=== PATIENT | female | born 1960 | race Caucasian/White ===

== ENCOUNTER → 2016-07-04 | Outpatient (CLI) | payer BC | LOC: GMAJ 10:58 | PROVIDERS: ATTEND Family Medicine | DX: E78.00 Pure hypercholesterolemia, unspecified (principal) ==

== ENCOUNTER → 2016-09-19 | Outpatient (CLI) | payer BC ==
--- NOTE | 2016-09-19 17:33 | MAM ---
History: Well woman exam. Personal history of breast cancer. Date of exam: 09/19/2016. Services provided: Bilateral full field digital screening mammography. CAD, the images were reviewed with R2 computer aided detection. FINDINGS: Glandular tissue is scattered glandular contour with increased mammographic density. Comparison with 2014 study. Surgical clips are present bilaterally with postsurgical changes bilaterally. These appear grossly stable. Scattered calcifications are seen bilaterally. No dominant mass. IMPRESSION: Benign exam Recommendation: Routine annual mammography BIRAD CATEGORY: 2 BENIGN Electronically signed by: Marcy Min MD 09/19/2016 5:32 PM CDT
== END | disposition home or self-care (01) ==
LOC: MAMMO 14:27
PROVIDERS: ATTEND Family Medicine
DX: Z12.31 Encounter for screening mammogram for malignant neoplasm of breast (principal)

== ENCOUNTER → 2017-01-23 | Outpatient (CLI) | payer BC | END | disposition home or self-care (01) | LOC: GMAJ 10:39 | PROVIDERS: ATTEND Family Medicine | DX: Z00.00 Encounter for general adult medical examination without abnormal findings (principal) ==

== ENCOUNTER → 2017-08-29 | Outpatient (CLI) | payer BC ==
--- NOTE | 2017-08-30 10:15 | US ---
THYROID ULTRASOUND CLINICAL INFORMATION: Thyroid nodule TECHNIQUE: Thyroid sonography was performed COMPARISON: None FINDINGS: Thyroid size: Right lobe measures 3.8 x 1.4 x 1.6 cm. Left lobe measures 4.5 x 2 x 2.1 cm cm. Thyroid isthmus measures 4 mm in thickness. Texture: Mildly coarsened slightly inhomogeneous texture Estimated total number of nodules >/=1 cm: 2 Right lobe A lesion in the right lobe measures 1 x 0.6 x 0.8 cm. No internal microcalcifications to suggest the need for biopsy at this time. This could be followed up in one year. Left Large lesion is seen occupying the midportion of the left thyroid lobe which measures 2.5 x 1.7 x 1.8 cm. This is somewhat inhomogeneous but appears entirely solid. Minimal color flow within the nodule. Sono guided biopsy is recommended. IMPRESSION: Dominant nodule in the mid to lower left thyroid lobe measures 2.5 cm in greatest dimension. Further evaluation with sono guided fine-needle aspiration biopsy is recommended. Smaller right thyroid nodule 1 cm in greatest dimension can be followed as noted above. Electronically signed by: Galo Gutierrez MD 08/30/2017 10:13 AM CDT
== END ==
LOC: US 13:24
PROVIDERS: ATTEND Family Medicine
DX: E04.1 Nontoxic single thyroid nodule (principal)

== ENCOUNTER → 2017-09-06 | Outpatient (CLI) | payer BC ==
--- NOTE | 2017-09-07 09:22 | US ---
Thyroid Ultrasound Biopsy: Ultrasound guided. CLINICAL INFORMATION: Large left thyroid nodule seen on ultrasound 08/29/2017. TECHNIQUE: Procedure was explained to the patient with risks and benefits. The patient gave verbal and written consent. Sterile preparation draping. 1% xylocaine dermal anesthetic. Sterile ultrasound guidance. A total of 5 passes into hypoechoic, solid, 2.5 cm mid left thyroid nodule; 3 needle samplings with a separate 1.5 inch, 25-gauge needle per sample, and 2 aspiration, with a separate 1.5 inch, 25-gauge needle/10-cc syringe set, per aspiration. Each sample was placed on a separate slide and fixed in 95% alcohol container. Saccomanno fluid drawn into aspirate needle and rinse injected into Saccomanno container. Specimens to be sent for pathologic examination at remote facility. . Patient tolerated procedure well, with no immediate complications. Biopsy #: 1 Nodule reference number based on prior diagnostic ultrasound:other Maximum size: 2.5 cm Location: left; mid ACR TI-RADS risk category: TR4 (4-6 points) Reason for biopsy: meets ACR TI-RADS criteria Complications: None IMPRESSION: Successful ultrasound guided fine needle aspiration of 2.5 cm hypoechoic, almost solid, left thyroid nodule. Pathology results pending. Electronically signed by: Evert Monaco MD 09/07/2017 9:21 AM CDT
== END | disposition home or self-care (01) ==
LOC: US 08:55
PROVIDERS: ATTEND Family Medicine
PROC: 0GBG3ZX Excision of Left Thyroid Gland Lobe, Percutaneous Approach, Diagnostic (ICD-10-PCS; principal; 2017-09-06)
DX: E04.1 Nontoxic single thyroid nodule (principal)

== ENCOUNTER → 2018-03-27 | Outpatient (CLI) | payer BC | LOC: GMAJ 13:17 | PROVIDERS: ATTEND Family Medicine | DX: Z00.00 Encounter for general adult medical examination without abnormal findings (principal) ==

== ENCOUNTER → 2020-04-08 | Outpatient (CLI) | payer BC | LOC: GMAJ 14:22 | PROVIDERS: ATTEND Family Medicine | DX: I10 Essential (primary) hypertension (principal) ==

== ENCOUNTER → 2020-04-17 | Outpatient (CLI) | payer BC ==
--- NOTE | 2020-04-18 13:28 | CT ---
EXAM DESCRIPTION: CTA Neck CLINICAL HISTORY: 59 years Female, OCCLUSION AND STENOSIS OF UNSPEC CAROTID ART COMPARISON: None. TECHNIQUE: After bolus IV contrast administration, 1.[address] scanning through the neck was performed for CT cervical angiography. Coronal and sagittal reformatted images are obtained. 3-D shaded surface display images and 3-D MIP images of the cervical vessels are evaluated with spin display. FINDINGS: Axial source data images show clear lung apices. Large lung cyst on the left measures 7.1 cm. Enlarged left thyroid lobe is seen and could be further evaluated with sonography. Normal enhancement of the aortic arch. Normal enhancement of pulmonary arteries. Normal enhancement of the innominate artery, right common carotid and right subclavian arteries as well as the right vertebral artery. Positive enhancement of the left common carotid and left subclavian arteries with positive enhancement of the dominant left vertebral artery. Right vertebral artery is small in size. Right vertebral artery terminates in the right posterior inferior cerebellar artery. The left vertebral artery supplies the basilar artery and left posterior inferior cerebellar artery. Positive enhancement of the basilar artery with no aneurysm or occlusion. There is normal enhancement of the superior cerebellar arteries and bilateral posterior cerebral arteries. Small bilateral posterior communicating arteries are present contributing to the posterior cerebral arteries. Positive enhancement of widely patent bilateral cervical common carotid arteries which are tortuous. Right carotid bifurcation is widely patent with minimal arteriosclerotic plaque and no hemodynamically significant stenosis. Normal enhancement of the right supra bulbar ICA from the carotid bifurcation to the level of the [place]. Left carotid bifurcation is widely patent. Normal enhancement of the left internal and external carotid arteries. Widely patent left ICA from the level of the carotid bifurcation to the level of the [place]. Bilateral ICAs are widely patent. Normal enhancement of middle cerebral and anterior cerebral arteries bilaterally. Three-D shaded surface display images show mild calcified plaque at the carotid bulbs bilaterally with no significant stenosis. The right ECA was edited out. Both ICAs are widely patent. MIP images show widely patent carotid bulbs and ICAs. Tortuous widely patent cervical common carotid arteries. Coronal and sagittal reformatted images confirm widely patent carotid bifurcations bilaterally. Arteriosclerotic plaque is minimal at the level of the carotid bulbs. Markedly tortuous common carotid arteries. IMPRESSION: Mild calcified plaque at the bilateral carotid bifurcations with no hemodynamically significant stenosis. Positive enhancement of smaller right and dominant left cervical vertebral arteries with no stenosis. This exam was performed according to our departmental dose-optimization program, which includes automated exposure control, adjustment of the mA and/or kV according to patient size and/or use of iterative reconstruction technique. Electronically signed by: Galo Gutierrez MD 04/18/2020 1:26 PM [facility]
== END ==
LOC: CT 10:21
PROVIDERS: ATTEND Family Medicine
DX: I65.23 Occlusion and stenosis of bilateral carotid arteries (principal)

== ENCOUNTER → 2020-04-22 | Outpatient (CLI) | payer BC ==
--- NOTE | 2020-04-23 05:20 | CT ---
EXAM DESCRIPTION: Chest w/Contrast CLINICAL HISTORY: 59 years Female, solitary pulmonary nodule TECHNIQUE: This exam was performed according to our departmental dose-optimization program, which includes automated exposure control, adjustment of the mA and/or kV according to patient size and/or use of iterative reconstruction technique. COMPARISON: None at time of initial interpretation. FINDINGS: The thyroid gland is unremarkable. No axillary adenopathy. Surgical clips in both breasts. Normal caliber thoracic aorta. No pericardial effusion. No evidence of acute process in the visualized upper abdomen. Probable cholelithiasis. No mediastinal adenopathy. No pneumothorax. No pleural effusion. Left upper lobe bulla measuring 6.5 cm. No focal consolidation. Emphysematous change. No suspicious pulmonary nodule identified. No acute or suspicious osseous abnormality. Scattered degenerative changes present. IMPRESSION: 1. No evidence of acute process in the chest. No suspicious pulmonary nodule. 2. Emphysema with a left upper lobe bulla. Electronically signed by: Vladislav Hudson MD 04/23/2020 5:19 AM [facility]
== END ==
LOC: CT 08:39
PROVIDERS: ATTEND Family Medicine
DX: R91.1 Solitary pulmonary nodule (principal); J43.9 Emphysema, unspecified

== ENCOUNTER 2020-07-22 19:00 | Emergency (ER) | payer BC ==
[2020-07-22] MEDS ORDERED: SODIUM CHLORIDE 0.9% (FLUSH) 10 ML SYG IV PRN (19:17)
[2020-07-22] MEDS ORDERED: SODIUM CHLORIDE 0.9% 1000ML 1,000 ML IVS PRN (19:17)
[2020-07-22] MEDS ORDERED: ONDANSETRON INJ 4 MG/2 ML VIAL IV ONE (19:17)
--- NOTE | 2020-07-22 19:38 | ED.PDOC ---
History of Present Illness - General Chief Complaint: GI Problem Stated Complaint: fevers, nausea, vomiting Time Seen by Provider: 07/22/20 19:32 Source: patient, RN notes reviewed, Vital Signs reviewed Exam Limitations: no limitations - History of Present Illness Initial Comments: Patient is a 59-year-old white female who presents with complaints of nausea and vomiting starting today. Last night she went to [place] and ate at [employer]. She had the honey chicken. Her did not have any. He is not sick. Patient denies any diarrhea. Patient's had 4 episodes of vomiting since this afternoon. Patient denies any fever or chills. Patient denies any blurred vision, dizziness or chest pain. Patient complains of being thirsty but not able to hold anything down. The vomiting is worse when she tries to eat or drink. Nothing makes it better. The symptoms are severe. Timing/Duration: 4-6 hours Severity: severe Improving Factors: nothing Worsening Factors: eating Associated Symptoms: nausea/vomiting Allergies/Adverse Reactions: Allergies NO KNOWN ALLERGY Allergy (Verified 07/22/20 19:17) Home Medications: Ambulatory Orders Citalopram Hydrobromide [Celexa] 20 mg PO DAILY 01/08/14 Garlic [Garlic 705 mg] 1 cap PO DAILY 01/08/14 Lisinopril 10 mg PO DAILY 01/08/14 Niacin 100 mg PO DAILY 01/08/14 Thida-3 Fatty Acids [Thida 3] 1 cap PO DAILY 01/08/14 Potassium Chloride [Micro-K] 10 meq PO DAILY 01/08/14 Ascorbic Acid [Vitamin C] 1,000 mg PO DAILY 01/10/14 Calcium 500 mg PO DAILY 01/10/14 Cyanocobalamin [Vitamin B 12] 250 mcg PO DAILY 01/10/14 Multiple Vitamins W/ Minerals [Biotin Plus/Calcium/Vit D] 1 tab PO DAILY 01/10/14 Multiple Vitamins W/ Minerals [Multi For Her] 1 cap PO DAILY 01/10/14 Review of Systems - Review of Systems Constitutional: States: no symptoms reported, see HPI. Denies: chills, fever, malaise, weakness EENTM: States: no symptoms reported. Denies: eye pain, blurred vision, double vision Respiratory: States: no symptoms reported. Denies: cough, orthopnea, short of breath, stridor, wheezing Cardiology: States: no symptoms reported. Denies: chest pain, palpitations, syncope Gastrointestinal/Abdominal: States: see HPI, nausea, vomiting. Denies: abdominal pain, constipation, diarrhea Genitourinary: States: no symptoms reported. Denies: dysuria, frequency Musculoskeletal: States: no symptoms reported. Denies: back pain, joint pain, neck pain Skin: States: no symptoms reported, rash. Denies: change in color Neurological: States: no symptoms reported. Denies: headache, tingling, tremors, weakness Endocrine: States: no symptoms reported. Denies: increased hunger, increased thirst, increased urine Hematologic/Lymphatic: States: no symptoms reported. Denies: blood clots, easy bleeding All other Systems: Reviewed and Negative Past Medical History (General) - Patient Medical History Hx of COPD: - pt told she has a "hole" in her lung Hx Congestive Heart Failure: No Hx Hypertension: Yes Hx Thyroid Disease: Yes - cyst on thryroid Hx Diabetes: Yes - borderline - Vaccination History Hx Tetanus, Diphtheria Vaccination: No Hx Influenza Vaccination: No Hx Pneumococcal Vaccination: No - Social History Hx Tobacco Use: No Hx Alcohol Use: No Family Medical History - Family History Mother Hx Family;Other: Tyhroid cancer Physical Exam - Physical Exam General Appearance: Alert, Anxious, Obvious distress, Ill Appearing, Well Developed, Well Groomed, Well Nourished Eye Exam: bilateral normal Ears, Nose, Throat: hearing grossly normal, normal ENT inspection, normal pharynx - Except for dry mucous membranes. 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 07/22/20 23:01 Patient heart rate is come down from the 140s into the low 100s. Her fever has come down from 105.7 down to 103-1/2. Her blood pressures still with a systolic in the 120s. Patient does have an elevated white count and LFTs in the 400 range. Additionally she has an elevated total bilirubin of 5.3. I am concerned for an obstructive ascending cholangitis. I do not have ultrasound here or GI. I will transfer the patient to [facility] for further evaluation. I have discussed this with Dr. Srinivasan at [facility] [place], GI, and he agrees the patient needs transferred. I have gotten acceptance from the ER from Dr. Barragan. William Monteiro M.D. #[id number] Patient's is adamant that the ultrasound be done tonight. I have explained to him that I have no control over the emergency department at [facility]. Additionally he wants to take his by private vehicle but I have let him know that I think his best option is to let her be taken over there by ambulance in case there are any untoward consequences during her transport. They finally have agreed to an ambulance transport. - Results/Orders Results/Orders: EKG performed 22 July 2020 at 1957 hrs.: Sinus tachycardia at 110 bpm, left atrial enlargement, right bundle branch block, T wave abnormality with flipped T waves inferiorly concerning for ischemia, abnormal EKG. No comparison EKG available at this time. 07/22/20 19:17 IV Care:Saline Lock per Protoc QSHIFT Sodium Chloride 0.9% (Flush) [Saline Flush Syringe] 10 ml IV PRN PRN Sodium Chloride 0.9% 1000ML [Ns 1000 ml] 1,000 ml IVS .QD URINALYSIS Stat 07/22/20 19:30 EKG STAT 07/22/20 20:09 RESPIRATORY PANEL 2 Stat Laboratory Results - last 24 hr 07/22/20 07/22/20 07/22/20 19:29 19:29 19:29 WBC 11.7 H RBC 4.80 Hgb 14.5 Hct 42.2 MCV 88.0 MCH 30.1 MCHC 34.2 RDW 12.9 Plt Count 285 MPV 8.9 Absolute Neuts (auto) 11.10 H Absolute Lymphs (auto) 0.40 L Absolute Monos (auto) 0.10 L Absolute Eos (auto) 0.00 Absolute Basos (auto) 0.00 Neutrophils % 95.0 H Lymphocytes % 3.5 L Monocytes % 1.3 L Eosinophils % 0.0 L Basophils % 0.2 Sodium 138 Potassium 3.1 L Chloride 102 Carbon Dioxide 22 Anion Gap 17.1 BUN 14 Creatinine 0.72 BUN/Creatinine Ratio 19.4 Random Glucose 205 H Serum Osmolality 282.1 Calcium 8.9 Total Bilirubin 5.3 H* AST 446 H ALT 301 H Alkaline Phosphatase 108 Serum Total Protein 7.8 Albumin 4.3 Globulin 3.5 Albumin/Globulin Ratio 1.2 Amylase 28 Lipase 25 Vital Signs 07/22/20 19:07 Temperature 105.7 F H Pulse Rate [ 132 H monitor] Respiratory 18 Rate Blood Pressure 175/90 [Left Arm] O2 Sat by Pulse 88 L Oximetry Heart rate at 2210 hrs. is 104 bpm. Covid is negative. Influenza is negative. Departure - Departure Clinical Impression: Ascending cholangitis, Elevated LFTs, Dehydration Fever Qualifiers: Fever type: unspecified Qualified Code(s): R50.9 - Fever, unspecified Time of Disposition: 23:15 Disposition: Transfer to Hospital Condition: Fair Departure Forms: ED Discharge - Pt. Copy, Patient Portal Self Enrollment Diet: other - npo Referrals: Zelalem Kuhn MD [Primary Care Provider] - 1-2 Weeks Home Medications: Ambulatory Orders Citalopram Hydrobromide [Celexa] 20 mg PO DAILY 01/08/14 Garlic [Garlic 705 mg] 1 cap PO DAILY 01/08/14 Lisinopril 10 mg PO DAILY 01/08/14 Niacin 100 mg PO DAILY 01/08/14 Thida-3 Fatty Acids [Thida 3] 1 cap PO DAILY 01/08/14 Potassium Chloride [Micro-K] 10 meq PO DAILY 01/08/14 Ascorbic Acid [Vitamin C] 1,000 mg PO DAILY 01/10/14 Calcium 500 mg PO DAILY 01/10/14 Cyanocobalamin [Vitamin B 12] 250 mcg PO DAILY 01/10/14 Multiple Vitamins W/ Minerals [Biotin Plus/Calcium/Vit D] 1 tab PO DAILY 01/10/14 Multiple Vitamins W/ Minerals [Multi For Her] 1 cap PO DAILY 01/10/14 Transfer to Outside Facility - Transfer Information Decision to Transfer Date: 07/22/20 Decision to Transfer Time: 22:30 Accepting Provider:: Dr. Bolton and Dr. Srinivasan Accepting Facility: [facility]
[2020-07-22] MEDS ORDERED: SODIUM CHLORIDE 0.9% 1000ML 1,000 ML IVS ONE (20:32)
[2020-07-22 22:15] VITALS: O2SAT 96
[2020-07-22] MEDS ORDERED: IBUPROFEN 200 MG TAB PO ONE (22:15)
[2020-07-22] MEDS ORDERED: IBUPROFEN 200 MG TAB ONE (22:17)
[2020-07-22] MEDS ORDERED: PIPERACILLIN/TAZOBACTAM 4.5 GM in SODIUM CHLORIDE 0.9% 100ML 100 ML IVPB ONE (22:26)
[2020-07-23 00:10] VITALS: BP 123/69; TEMP 101.2
== END 2020-07-23 00:20 | disposition short-term general hospital (02) ==
LOC: ER 19:00
DX: K83.09 Other cholangitis (principal); R94.5 Abnormal results of liver function studies; E86.0 Dehydration; R50.9 Fever, unspecified; R00.0 Tachycardia, unspecified; I45.10 Unspecified right bundle-branch block; R94.31 Abnormal electrocardiogram [ECG] [EKG]; I10 Essential (primary) hypertension; R73.03 Prediabetes; E07.9 Disorder of thyroid, unspecified; Z20.822 Contact with and (suspected) exposure to COVID-19; Z79.899 Other long term (current) drug therapy
CPT/HCPCS: 36415; 80053; 82150; 83690; 85025; 87040; 87486; 87581; 87633; 87635; 93005; A4216; J2405; J2543; J7030; J7050